=== PATIENT | male | born 1950 | race Caucasian/White ===

== ENCOUNTER 2018-03-01 06:29 | Day surgery (SDC) | payer MEDICARE, OTHER ==
[~2018-03-01] VITALS: Ht 177.8 cm; Wt 78.9 kg
[~2018-03-01 06:29] MED LIST: ALBU90OI6 INH; Aspirin EC81 MG PO; BACL10 PO; CHOL10002 PO; CLOB.05TO; FAMO40 PO; FLUSAL2505 INH; HYDCHL25 PO; HYDR1TAB94 PO; LISHYD2025 PO; LISI5 PO; METO25ER PO; Mobic15 MG PO; NYST100TC TOP; OMEP40CA12 PO; SIMV10 PO; SIMV40 PO; Simvastatin20 MG PO; TRAM50 PO
== END 2018-03-01 09:17 | disposition home or self-care (01) ==
LOC: ORSCMMR 06:29 → ORD 08:00 → ORSCMMR 09:17
PROVIDERS: Internal Medicine Gastroenterology
PROC: 0DB68ZX Excision of Stomach, Via Natural or Artificial Opening Endoscopic, Diagnostic (ICD-10-PCS; principal; 2018-03-01 08:00)
PROC: 0DBE8ZX Excision of Large Intestine, Via Natural or Artificial Opening Endoscopic, Diagnostic (ICD-10-PCS; principal; 2018-03-01 08:00)
PROC: 0DB58ZX Excision of Esophagus, Via Natural or Artificial Opening Endoscopic, Diagnostic (ICD-10-PCS; principal; 2018-03-01 08:00)
PROC: 0DB48ZX Excision of Esophagogastric Junction, Via Natural or Artificial Opening Endoscopic, Diagnostic (ICD-10-PCS; principal; 2018-03-01 08:00)
DX: K21.9 Gastro-esophageal reflux disease without esophagitis (principal); K22.70 Barrett's esophagus without dysplasia; K20.9 Esophagitis, unspecified; R19.7 Diarrhea, unspecified; K29.70 Gastritis, unspecified, without bleeding; K44.9 Diaphragmatic hernia without obstruction or gangrene; D12.0 Benign neoplasm of cecum; I10 Essential (primary) hypertension; E78.00 Pure hypercholesterolemia, unspecified; F17.220 Nicotine dependence, chewing tobacco, uncomplicated; Z79.899 Other long term (current) drug therapy
CPT/HCPCS: 88305; 88342; J7120

== ENCOUNTER 2019-06-20 16:42 | Inpatient (IN) | payer MEDICARE, OTHER ==
[~2019-06-20] VITALS: Ht 177.8 cm; Wt 73.5 kg
[~2019-06-20 16:42] MED LIST changes: +Atrovent Inha12.9 GM NEB; -LISHYD2025 PO; +ZESTORETIC 20-1 EACH PO
--- NOTE | 2019-06-22 06:50 | NUR ---
History, Chart, Medications and Allergies reviewed before start of procedure. Patient confirms NPO status and agrees with scheduled surgery. Lungs clear T/O to Auscultation. Pre-Op teaching done. Pt verbalizes understanding. Patient reports completing Chlorhexadine shower & MUPIROCIN OINTMENT TO NARES X 5 prior to admission to hospital. NO JEWELRY ON AT ADMIT TO [facility], NO GLASSES. DENTURE CUP PROVIDED FOR DENTURES DURING SURGERY.
--- NOTE | 2019-06-22 07:17 | NUR ---
LEAD [employer] DEVELOPER REPORT COMPLETED AT BEDSIDE WITH LA NENA HERNANDEZ RN.
--- NOTE | 2019-06-22 09:24 | NUR ---
06/22/19 0924 Char Ortiz PT VOIDED PRIOR TO COMING TO THE OR
--- NOTE | 2019-06-22 12:57 | NUR ---
PATIENT STATES NAUSEA RESOLVED. TOOK 80% OF LUNCH. DENIES PAIN AT THIS TIME. WIGGLING FEET MORE. TALKING WITH FAMILY. CONT TO MONITOR.
--- NOTE | 2019-06-22 19:25 | NUR ---
SHIFT SUMMARY PATIENT UP WITH PT, AMBULATED, THEN TO CHAIR. UNABLE TO VOID, BS > 600. STRAIGHT CATHED BY CLININCAL COORDINATOR, 600 ML OUTPUT. PATIENT STATES HX OF DIFFICULTY VOIDING AFTER NARCS. PATIENT CONT TO STATES NO PAIN. TOLERATING PO. CIRC CHECKS WNL. NO NEEDS AT THIS TIME.
--- NOTE | 2019-06-23 04:38 | NUR ---
SHIFT SUMMARY: PT POD #1 FOR LEFT TOTAL HIP. A&O X4. VS WNL. AQUACEL DRESSING CDI WITH POLAR PACK IN PLACE. PAIN MANAGED WITH TORADOL AND TYLENOL PER EMAR. PT OUT OF BED W/FWW+ 1 MINIMAL ASSIST. VOIDING WELL POST STRAIGHT CATHETERIZATION. YANELY REG DIET. DENIES N/V. SALINE LOCKED.
[2019-06-23 05:54] LABS: BASOPHILS ABSOLUTE AUTO 0.02 K/mm3 (0.00-0.23); BASOPHILS PERCENT AUTO 0 % (0-2); EOSINOPHILS PERCENT AUTO 0 % (0-6); Hematocrit 32.5 % (37.0-53.0); Hemoglobin 10.3 g/dL (13.5-17.5); IMMATURE GRAN ABSOLUTE AUTO 0.06 K/mm3 (0.00-0.10); IMMATURE GRAN PERCENT AUTO 0 % (0-1); LYMPHOCYTES PERCENT AUTO 8 % (21-46); MONOCYTES ABSOLUTE AUTO 1.24 K/mm3 (0.16-1.47); MONOCYTES PERCENT AUTO 9 % (4-13); Mean Corpuscular HGB 28.8 pg (26.0-34.0); Mean Corpuscular HGB Conc 31.7 g/dL (31.5-36.5); Mean Corpuscular Volume 91 fL (80-100); Mean Platelet Volume 8.8 fL (9.1-12.4); NEUTROPHILS ABSOLUTE AUTO 11.84 K/mm3 (1.96-9.15); NEUTROPHILS PERCENT AUTO 83 % (41-73); Platelet Count 325 K/mm3 (150-400); RDW Coefficient Variation 15.2 % (11.7-14.2); RDW Standard Deviation 50.6 fL (35.1-46.3); Red Blood Cell Count 3.58 M/mm3 (4.30-5.90); White Blood Cell Count 14.36 K/mm3 (4.00-11.30)
[2019-06-23 06:08] LABS: Anion Gap 6 mmol/L (6-16); Blood Urea Nitrogen 11 mg/dL (8-24); Bun/Creatinine Ratio 12.6 (12.0-20.0); CO2, Blood 26 mmol/L (21-32); Calcium, Blood 8.5 mg/dL (8.5-10.1); Chloride, Blood 103 mmol/L (98-108); Creatinine, Blood 0.87 mg/dL (0.60-1.20); Glomerular Filtration Rate >60 (60-); Glucose, Blood 117 mg/dL (70-99); Magnesium, Blood 1.9 mg/dL (1.6-2.4); Potassium, Blood 4.3 mmol/L (3.5-5.5); Sodium, Blood 135 mmol/L (136-145)
[2019-06-23] MEDS ORDERED: OXYC5 PO (08:25)
[2019-06-23] MEDS ORDERED: ACET500 PO (12:45)
[2019-06-23] MEDS ORDERED: ASPI325 PO (12:46)
--- NOTE | 2019-06-23 13:05 | NUR ---
PATIENT D/C'D HOME WITH AT THIS TIME; BOTH STATE UNDERSTANDING OF MEDS, WOUND CARE, FOLLOW UP APPT, ACTIVITY, ETC, OP PT. TOLERATING PO. VOIDING WELL. STATES PAIN WELL CONTROLLED. NO C/O AT THIS TIME.
== END 2019-06-23 13:10 | disposition home or self-care (01) | DRG 470 ==
LOC: SURS 06-22 05:29 → PRE IP 06-22 07:30 → SURS 06-22 11:31
PROVIDERS: ADMIT Orthopaedic Surgery
PROC: 0SRB04A Replacement of Left Hip Joint with Ceramic on Polyethylene Synthetic Substitute, Uncemented, Open Approach (ICD-10-PCS; principal; 2019-06-22 07:30)
DX: M16.12 Unilateral primary osteoarthritis, left hip (principal); I10 Essential (primary) hypertension
CPT/HCPCS: 36415; 72170; 80048; 83735; 85025; 88305; 88311; 94760; 97110; 97116; 97161; 97530; C1776; J0171; J0690; J0735; J1100; J1885; J2250; J2405; J2704; J2795; J3010; J3370; J7120

== ENCOUNTER 2019-12-22 15:55 | Inpatient (IN) | payer MEDICARE, OTHER ==
[~2019-12-22] VITALS: Ht 177.8 cm; Wt 78.0 kg
[~2019-12-22 15:55] MED LIST changes: +ACET500 PO; +ASPI325 PO; -CLOB.05TO; +CLOB.05TO TOP; +GABA300 PO; +OXYC5 PO
--- NOTE | 2019-12-25 07:34 | NUR ---
0615 AMBULATE TO [facility], CONFIRMED NPO AND SURGERY. PRE OP TEACHING DONE. LUNGS CLEAR. 0650 AT BEDSIDE. 0730 DENTURES LEFT IN PER DR NICKI CARVAJAL. DENTURE CUP SENT WITH PATIENT
--- NOTE | 2019-12-25 12:37 | NUR ---
Pt gave this nurse verbal consent to treat on 12/25/2019.
--- NOTE | 2019-12-25 14:33 | NUR ---
The patient gives this student nurse permission to help with his care on 12/26/2019
--- NOTE | 2019-12-26 05:07 | NUR ---
SHIFT SUMMARY PT IS A/O X4. USES 1X ASSIST AND WALKER TO BATHROOM. PT HAS AMBULATED IN HALLWAY MULTIPLE TIMES THIS SHIFT. PAIN CONTROLLED WITH TYLENOL/TORADOL PER ORDERS. PT HAS HAD DIFFICULTY URINATING AND HAS BEEN STRAIGHT CATH'D SEVERAL TIMES THIS SHIFT. TOLERATING PO INTAKE WELL. PT C/O NAUSEA ONCE AND WAS MED PER ORDERS. POLAR PACK HAS BEEN IN PLACE. SCD'S HAVE BEEN ON. AQUACEL WAS CHANGED D/T SATURATION. ASSISTED WITH ADL'S PRN.
[2019-12-26 06:16] LABS: BASOPHILS ABSOLUTE AUTO 0.01 K/mm3 (0.00-0.23); BASOPHILS PERCENT AUTO 0 % (0-2); EOSINOPHILS PERCENT AUTO 0 % (0-6); Hematocrit 30.8 % (37.0-53.0); Hemoglobin 10.2 g/dL (13.5-17.5); IMMATURE GRAN ABSOLUTE AUTO 0.05 K/mm3 (0.00-0.10); IMMATURE GRAN PERCENT AUTO 0 % (0-1); LYMPHOCYTES ABSOLUTE AUTO 1.33 K/mm3 (0.84-5.20); LYMPHOCYTES PERCENT AUTO 11 % (21-46); MONOCYTES ABSOLUTE AUTO 1.05 K/mm3 (0.16-1.47); MONOCYTES PERCENT AUTO 9 % (4-13); Mean Corpuscular HGB 29.6 pg (26.0-34.0); Mean Corpuscular HGB Conc 33.1 g/dL (31.5-36.5); Mean Corpuscular Volume 89 fL (80-100); Mean Platelet Volume 8.9 fL (9.1-12.4); NEUTROPHILS ABSOLUTE AUTO 9.23 K/mm3 (1.96-9.15); NEUTROPHILS PERCENT AUTO 79 % (41-73); Platelet Count 214 K/mm3 (150-400); RDW Coefficient Variation 17.1 % (11.7-14.2); RDW Standard Deviation 55.2 fL (35.1-46.3); Red Blood Cell Count 3.45 M/mm3 (4.30-5.90); White Blood Cell Count 11.67 K/mm3 (4.00-11.30)
[2019-12-26 06:43] LABS: Anion Gap 7 mmol/L (6-16); Blood Urea Nitrogen 13 mg/dL (8-24); Bun/Creatinine Ratio 11.4 (12.0-20.0); CO2, Blood 26 mmol/L (21-32); Calcium, Blood 8.7 mg/dL (8.5-10.1); Chloride, Blood 100 mmol/L (98-108); Creatinine, Blood 1.14 mg/dL (0.60-1.20); Glomerular Filtration Rate >60 (60-); Glucose, Blood 123 mg/dL (70-99); Magnesium, Blood 1.8 mg/dL (1.6-2.4); Potassium, Blood 4.2 mmol/L (3.5-5.5); Sodium, Blood 133 mmol/L (136-145)
[2019-12-26] MEDS ORDERED: ASPI81CH PO (09:25)
[2019-12-26] MEDS ORDERED: ACET500 PO (09:25)
[2019-12-26] MEDS ORDERED: ROXICODONE5 MG PO (09:26)
--- NOTE | 2019-12-26 10:17 | NUR ---
12/26/19 1017 Natalie Manrique VERIFICATIONS: EDIT CHART.
--- NOTE | 2019-12-26 17:06 | NUR ---
PATIENT GAVE THIS STUDENT RN PERMISSION TO BE PART OF HIS CARE ON 12/27/19.
--- NOTE | 2019-12-26 18:04 | NUR ---
SHIFT SUMMARY PT HAS DONE WELL THIS SHIFT. POD 1 R HAMZAH. AQUACEL DRESSING C/D/I, POLAR PACK IN PLACE. UP TO CHAIR T/O SHIFT. AMBULATING SBA W/FWW. WORKED WITH THERAPY. LOTT IN PLACE FOR URINARY RETENTION, BLADDER TRAIN TOMORROW. PT MEDICATED PER EMAR FOR PAIN.
--- NOTE | 2019-12-26 18:08 | NUR ---
PT FINISHED DINNER. SITTING IN CHAIR TALKING ON PHONE. MEDICATED WITH SCHED TORADOL.
--- NOTE | 2019-12-27 05:03 | NUR ---
SHIFT SUMMARY: PT POD #2 FOR RT HAMZAH. PT A&O X4. VSS. AQUACEL TO HIP CDI WITH POLAR PACK IN PLACE. PT MEDICATED WITH 5MG OXY ONCE. OTHERWISE, PAIN MANAGED WITH TORADOL AND TYLENOL PER EMAR. YANELY PO. DENIES N/V. LOTT DRAINING CLEAR YELLOW URINE. TOTAL OF 2400ML FOR OUTPUT. AMBULATING WITH FWW. INDEPENDENT IN ROOM. PT EAGER FOR DISCHARGE.
--- NOTE | 2019-12-27 10:02 | NUR ---
patient up to restroom, drained 150 ml from manuel and plug replaced to manuel
--- NOTE | 2019-12-27 18:06 | NUR ---
DISCHARGED TO HOME WITH . PT STATES HE FEELS LIKE HE IS NOW VOIDING AND EMPTYING HIS BLADDER PER HIS NORMAL. PAIN WELL CONTROLLED
== END 2019-12-27 18:07 | disposition home or self-care (01) | DRG 470 ==
LOC: SURS 12-25 05:33 → PRE IP 12-25 07:30 → SURS 12-25 11:55
PROVIDERS: ADMIT Orthopaedic Surgery
PROC: 0SR904A Replacement of Right Hip Joint with Ceramic on Polyethylene Synthetic Substitute, Uncemented, Open Approach (ICD-10-PCS; principal; 2019-12-25 07:30)
DX: M16.11 Unilateral primary osteoarthritis, right hip (principal); I10 Essential (primary) hypertension; E78.5 Hyperlipidemia, unspecified; J45.909 Unspecified asthma, uncomplicated
CPT/HCPCS: 36415; 72170; 80048; 83735; 85025; 88300; 97110; 97116; 97162; 97530; C1776; J0171; J0690; J0735; J1100; J1885; J2250; J2370; J2405; J2704; J2765; J2795; J3010; J7120

== ENCOUNTER 2019-12-27 23:47 | Emergency (ER) | payer MEDICARE, OTHER ==
[~2019-12-27] VITALS: Ht 177.8 cm; Wt 81.7 kg
[~2019-12-27 23:47] MED LIST changes: +ASPI81CH PO; +ROXICODONE5 MG PO
[2019-12-28 00:20] LABS: BASOPHILS ABSOLUTE AUTO 0.02 K/mm3 (0.00-0.23); BASOPHILS PERCENT AUTO 0 % (0-2); EOSINOPHILS ABSOLUTE AUTO 0.37 K/mm3 (0.00-0.68); EOSINOPHILS PERCENT AUTO 4 % (0-6); Hematocrit 34.6 % (37.0-53.0); Hemoglobin 11.2 g/dL (13.5-17.5); IMMATURE GRAN ABSOLUTE AUTO 0.04 K/mm3 (0.00-0.10); IMMATURE GRAN PERCENT AUTO 0 % (0-1); LYMPHOCYTES ABSOLUTE AUTO 2.79 K/mm3 (0.84-5.20); LYMPHOCYTES PERCENT AUTO 27 % (21-46); MONOCYTES ABSOLUTE AUTO 0.87 K/mm3 (0.16-1.47); MONOCYTES PERCENT AUTO 9 % (4-13); Mean Corpuscular HGB 29.3 pg (26.0-34.0); Mean Corpuscular HGB Conc 32.4 g/dL (31.5-36.5); Mean Corpuscular Volume 91 fL (80-100); NEUTROPHILS ABSOLUTE AUTO 6.17 K/mm3 (1.96-9.15); NEUTROPHILS PERCENT AUTO 60 % (41-73); Platelet Count 245 K/mm3 (150-400); RDW Coefficient Variation 17.3 % (11.7-14.2); Red Blood Cell Count 3.82 M/mm3 (4.30-5.90); White Blood Cell Count 10.26 K/mm3 (4.00-11.30)
[2019-12-28 00:34] LABS: International Normalized Ratio 0.91; Prothrombin Time Results 9.8 Sec (9.7-11.5)
[2019-12-28 00:41] LABS: Alanine Aminotransfer (ALT/SGP 27 U/L (12-78); Albumin, Blood 3.3 g/dL (3.4-5.0); Albumin/Globulin Ratio 0.9 (0.8-1.8); Alk Phos 111 U/L (50-136); Anion Gap 6 mmol/L (6-16); Aspartate Aminotrans (AST/SGOT 62 U/L (12-37); Bilirubin, Total 0.5 mg/dL (0.1-1.0); Blood Urea Nitrogen 16 mg/dL (8-24); Bun/Creatinine Ratio 16.4 (12.0-20.0); CO2, Blood 28 mmol/L (21-32); Calcium, Blood 8.8 mg/dL (8.5-10.1); Chloride, Blood 100 mmol/L (98-108); Creatinine, Blood 0.98 mg/dL (0.60-1.20); Globulin, Blood 3.6 g/dL (2.2-4.0); Glomerular Filtration Rate >60 (60-); Glucose, Blood 92 mg/dL (70-99); Potassium, Blood 4.6 mmol/L (3.5-5.5); Sodium, Blood 134 mmol/L (136-145); Total Protein, Blood 6.9 g/dL (6.4-8.2)
[2019-12-28 01:23] LABS: Source, Urine Clean Catch
[2019-12-28 01:24] LABS: Bilirubin, Urine Neg (Neg); Blood, Urine 5+ (Neg); Glucose Qualitative, Urine Neg (Neg); Ketones, Urine Neg (Neg); Leukocyte Esterase, Urine 2+ (Neg); Nitrite, Urine Neg (Neg); Protein, Urine Neg (Neg); Urobilinogen, Urine NORM (Normal)
[2019-12-28 01:39] LABS: Appearance, Urine Hazy (Clear); Color, Urine Red (P-Yellow)
[2019-12-28 01:40] LABS: Red Blood Cells, Urine TNTC /hpf (0-2); Squamous Epithelial Cells Not Seen /hpf (Few)
[2019-12-28 01:41] LABS: Bacteria Rare /hpf
== END 2019-12-28 02:40 | disposition home or self-care (01) ==
LOC: ER 23:47
PROVIDERS: Emergency Medicine
DX: R31.9 Hematuria, unspecified (principal); J45.909 Unspecified asthma, uncomplicated; I10 Essential (primary) hypertension; Z87.891 Personal history of nicotine dependence; Z96.641 Presence of right artificial hip joint; Z91.09 Other allergy status, other than to drugs and biological substances; Z79.899 Other long term (current) drug therapy; Z79.82 Long term (current) use of aspirin
CPT/HCPCS: 36415; 51702; 80053; 81001; 85025; 85610; 87086; 93005; 93010; 99283-25

== ENCOUNTER 2022-03-01 13:29 | Emergency (ER) | payer OTHER ==
[~2022-03-01] VITALS: Ht 177.8 cm; Wt 76.2 kg
== END 2022-03-01 14:57 | disposition home or self-care (01) ==
LOC: ER 13:29
DX: S93.401A Sprain of unspecified ligament of right ankle, initial encounter (principal); I10 Essential (primary) hypertension; Z79.899 Other long term (current) drug therapy; Z87.891 Personal history of nicotine dependence; W19.XXXA Unspecified fall, initial encounter
CPT/HCPCS: 73610; 99283-25

== ENCOUNTER 2023-03-25 09:18 | Day surgery (SDC) | payer OTHER ==
[~2023-03-25] VITALS: Ht 182.9 cm; Wt 79.5 kg
[2023-03-25] VITALS (15 sets, daily range): BP systolic 101–144; BP diastolic 71–97
[~2023-03-25 09:18] MED LIST changes: +OMEP20ER PO
--- NOTE | 2023-03-25 10:38 | NUR ---
03/25/23 Rohith Yoo HISTORY, CHART, MEDICATIONS AND ALLERGIES REVIEWED BEFORE START OF PROCEDURE. PATIENT CONFIRMS NPO STATUS AND AGREES WITH SCHEDULED PROCEDURE. 3-LEAD EKG REVIEWED WITH PHYSICIAN PRIOR TO START OF PROCEDURE. MONITOR INTACT WITH CONTINUOUS PULSE OXIMETRY,CAPNOGRAPHY, 3-LEAD EKG, INTERMITTENT BP. SUPPLEMENTAL O2 TO BE TITRATED THROUGHOUT PROCEDURE TO MAINTAIN O2 SATURATION ABOVE 90%. PATIENT DETERMINED TO BE ASA APPROPRIATE FOR PROPOFOL SEDATION PRIOR TO START OF PROCEDURE BY DR. BUCHANAN.
--- NOTE | 2023-03-25 11:13 | NUR ---
DISCHARGE NOTE Lungs clear T/O to Auscultation. Discharge instructions reviewed with patient. Patient verbalizes understanding. Copy given to patient to take home. Discharged via wheelchair to private car for ride home.
== END 2023-03-25 11:12 | disposition home or self-care (01) ==
LOC: ORSCMMR 09:18 → ORD 10:30 → ORSCMMR 10:30
PROVIDERS: Internal Medicine Gastroenterology
PROC: 0DJD8ZZ Inspection of Lower Intestinal Tract, Via Natural or Artificial Opening Endoscopic (ICD-10-PCS; principal; 2023-03-25 10:30)
DX: Z12.11 Encounter for screening for malignant neoplasm of colon (principal); Z86.010 Personal history of colon polyps; K57.30 Diverticulosis of large intestine without perforation or abscess without bleeding; K22.70 Barrett's esophagus without dysplasia; Z87.11 Personal history of peptic ulcer disease; Z98.84 Bariatric surgery status; I10 Essential (primary) hypertension; E78.00 Pure hypercholesterolemia, unspecified; J45.909 Unspecified asthma, uncomplicated; Z87.891 Personal history of nicotine dependence; Z79.899 Other long term (current) drug therapy
CPT/HCPCS: J2704; J7120

== ENCOUNTER 2024-01-03 11:40 | Day surgery (SDC) | payer OTHER ==
[~2024-01-03] VITALS: Ht 177.8 cm; Wt 81.0 kg
[~2024-01-03 11:40] MED LIST changes: +ALBU90OI; -ALBU90OI6 INH; +KETO15TC; +LISI20; +Lactated Ringer's 1,000 ML IV ONE; +SYMBICORT 16010.2 GM
[2024-01-03] MEDS ORDERED: NS 50 ML IV ONE (12:19)
[2024-01-03] MEDS ORDERED: CeFAZolin Sodium 2,000 MG VIAL ONE (12:19)
[2024-01-03] MEDS ORDERED: LOSARTAN-HCTZ1 EACH (12:40)
[2024-01-03] MEDS ORDERED: OMEPRAZOLE20 MG (12:41)
[2024-01-03] MEDS ORDERED: ZYRTEC10 M2 (12:41)
[2024-01-03] MEDS ORDERED: FORMOTEROL20 MCG/2 M (12:42)
[2024-01-03] MEDS ORDERED: AERONEB GO NEB1 EACH (12:42)
[2024-01-03] MEDS ORDERED: IPRAT-ALBUT 0.5-3 ML (12:43)
[2024-01-03] MEDS ORDERED: [UNRECOGNIZED DRUG - OTHER] (12:44)
[2024-01-03] MEDS ORDERED: B-12500 MC2 (12:45)
[2024-01-03] MEDS ORDERED: Lactated Ringer's 1,000 ML IV ONE (13:06)
[2024-01-03] MEDS ORDERED: FentaNYL Citrate 50 MCG/ML 2 ML Injection ONE (14:17)
[2024-01-03] MEDS ORDERED: propofoL 20 ML IV ONE (14:17)
[2024-01-03] MEDS ORDERED: Ropivacaine 0.5% HCl/Pf 5 MG/ML 20ML VIAL INJ ONE (14:35)
[2024-01-03] MEDS ORDERED: EPINEPhrine HCl 1 MG/ML 1ML Amp XX ONE (14:35)
[2024-01-03] MEDS ORDERED: Ondansetron HCl 2 MG / ML 2ML Vial ONE (14:39)
[2024-01-03] MEDS ORDERED: Dexamethasone Sod Phos 10 MG/ML 1ML VIAL ONE (14:39)
--- NOTE | 2024-01-03 14:39 | NUR ---
01/03/24 1439 Luna Gordon 10MLS ROPIVACAINE 0.5% MIXED AND VERIFIED W/ EPI 0.05MG (1MG/ML) TO MAKE ROPIVACAINE 0.5% W/ EPI, 1:200,000 FOR INJECTIONA AT [facility]
[2024-01-03 15:20] VITALS: BP 126/76
--- NOTE | 2024-01-03 16:30 | NUR ---
01/03/24 1630 Stepan Vgoel D/C'ED AT 1601.
== END 2024-01-03 16:18 | disposition home or self-care (01) ==
LOC: ORSCSDS 11:40
PROVIDERS: Orthopaedic Surgery
PROC: 01N50ZZ Release Median Nerve, Open Approach (ICD-10-PCS; principal; 2024-01-03 13:30)
DX: G56.03 Carpal tunnel syndrome, bilateral upper limbs (principal); J44.9 Chronic obstructive pulmonary disease, unspecified; E78.00 Pure hypercholesterolemia, unspecified; Z79.899 Other long term (current) drug therapy
CPT/HCPCS: J0171; J0690; J1100; J2405; J2704; J2795; J3010; J7120

== ENCOUNTER 2024-03-20 08:29 | Day surgery (SDC) | payer OTHER ==
[~2024-03-20] VITALS: Ht 177.8 cm; Wt 80.5 kg
[~2024-03-20 08:29] MED LIST changes: +AERONEB GO NEB1 EACH; +B-12500 MC2; +EPINEPhrine HCl 1 MG/ML 1ML Amp ONE; +FORMOTEROL20 MCG/2 M; +IPRAT-ALBUT 0.5-3 ML; +LOSARTAN-HCTZ1 EACH; +Lidocaine HCl/Pf 1% 5 ML VIAL ONE; +OMEPRAZOLE20 MG; +Ropivacaine 0.5% HCl/Pf 5 MG/ML 20ML VIAL ONE; +ZYRTEC10 M2; +[UNRECOGNIZED DRUG - OTHER]
[2024-03-20] MEDS ORDERED: CeFAZolin Sodium 2,000 MG VIAL ONE (09:07)
[2024-03-20] MEDS ORDERED: C COMPLEX1000 M1 PO (09:26)
[2024-03-20] MEDS ORDERED: FentaNYL Citrate 50 MCG/ML 2 ML Injection ONE (09:33)
[2024-03-20] MEDS ORDERED: propofoL 20 ML IV ONE (09:33)
[2024-03-20] MEDS ORDERED: Lactated Ringer's 1,000 ML IV ONE (09:41)
--- NOTE | 2024-03-20 11:10 | NUR ---
03/20/[email or web address] NOTIFIED OF SCRATCHES TO SABRINA MORRIS TO PROCEED PER DR BLAS
[2024-03-20 12:07] VITALS: BP 143/86
== END 2024-03-20 12:15 | disposition home or self-care (01) ==
LOC: ORSCSDS 08:29
PROVIDERS: Orthopaedic Surgery
PROC: 01N50ZZ Release Median Nerve, Open Approach (ICD-10-PCS; principal; 2024-03-20 10:30)
DX: G56.01 Carpal tunnel syndrome, right upper limb (principal); J44.9 Chronic obstructive pulmonary disease, unspecified; K21.9 Gastro-esophageal reflux disease without esophagitis; I10 Essential (primary) hypertension; Z79.899 Other long term (current) drug therapy
CPT/HCPCS: J0171; J0690; J2001; J2704; J2795; J3010; J7120

== ENCOUNTER 2024-12-14 17:00 | Emergency (ER) | payer OTHER ==
[~2024-12-14] VITALS: Ht 177.8 cm; Wt 83.5 kg
[~2024-12-14 17:00] MED LIST changes: +C COMPLEX1000 M1 PO; -EPINEPhrine HCl 1 MG/ML 1ML Amp ONE; -Lactated Ringer's 1,000 ML IV ONE; -Lidocaine HCl/Pf 1% 5 ML VIAL ONE; -Ropivacaine 0.5% HCl/Pf 5 MG/ML 20ML VIAL ONE
[2024-12-14 18:01] LABS: BASOPHILS ABSOLUTE AUTO 0.01 K/mm3 (0.00-0.23); BASOPHILS PERCENT AUTO 0 % (0-2); EOSINOPHILS ABSOLUTE AUTO 0.05 K/mm3 (0.00-0.68); EOSINOPHILS PERCENT AUTO 1 % (0-6); Hematocrit 42.2 % (37.0-53.0); Hemoglobin 14.7 g/dL (13.5-17.5); IMMATURE GRAN ABSOLUTE AUTO 0.02 K/mm3 (0.00-0.10); IMMATURE GRAN PERCENT AUTO 0 % (0-1); LYMPHOCYTES ABSOLUTE AUTO 1.21 K/mm3 (0.84-5.20); LYMPHOCYTES PERCENT AUTO 14 % (21-46); MONOCYTES ABSOLUTE AUTO 0.59 K/mm3 (0.16-1.47); MONOCYTES PERCENT AUTO 7 % (4-13); Mean Corpuscular HGB 32.7 pg (26.0-34.0); Mean Corpuscular HGB Conc 34.8 g/dL (31.5-36.5); Mean Corpuscular Volume 94 fL (80-100); Mean Platelet Volume 8.6 fL (9.1-12.4); NEUTROPHILS ABSOLUTE AUTO 6.62 K/mm3 (1.96-9.15); NEUTROPHILS PERCENT AUTO 78 % (41-73); Platelet Count 305 K/mm3 (150-400); RDW Coefficient Variation 12.8 % (11.7-14.2); RDW Standard Deviation 44.1 fL (35.1-46.3); Red Blood Cell Count 4.49 M/mm3 (4.30-5.90)
[2024-12-14] MEDS ORDERED: Aspirin 81 MG Chew PO ONE (19:00)
[2024-12-14 19:19] LABS: Albumin, Blood 3.6 g/dL (3.4-5.0); Albumin/Globulin Ratio 0.9 (0.8-1.8); Bilirubin, Total 0.4 mg/dL (0.1-1.0); Bun/Creatinine Ratio 11.2 (12.0-20.0); Calcium, Blood 9.5 mg/dL (8.5-10.1); Creatinine, Blood 0.89 mg/dL (0.60-1.20); Globulin, Blood 4.2 g/dL (2.2-4.0); Potassium, Blood 3.7 mmol/L (3.5-5.5); Total Protein, Blood 7.8 g/dL (6.4-8.2)
[2024-12-14 19:35] LABS: Free Thyroxine 0.96 ng/dL (0.70-1.60); Magnesium, Blood 1.9 mg/dL (1.6-2.4)
[2024-12-14 19:39] LABS: Thyroid Stimulating Hormone 1.14 uIU/mL (0.360-4.800)
[2024-12-14 20:47] LABS: Influenza A, PCR NEGATIVE (NEGATIVE); Influenza B, PCR NEGATIVE (NEGATIVE); Resp Syncytial Virus, PCR NEGATIVE (NEGATIVE); SARS-Cov-2 (COVID-19) PCR, MMC NEGATIVE (NEGATIVE)
[2024-12-14 22:00] VITALS: BP 146/113
[2024-12-14] MEDS ORDERED: Apixaban 5 MG Tab PO ONE (22:10)
[2024-12-14] MEDS ORDERED: ELIQUIS5 M2 PO (22:18)
== END 2024-12-14 22:30 | disposition home or self-care (01) ==
LOC: ER 17:00
PROVIDERS: Emergency Medicine; Physician Assistant
DX: I48.91 Unspecified atrial fibrillation (principal); R07.9 Chest pain, unspecified; I10 Essential (primary) hypertension; J44.89 Other specified chronic obstructive pulmonary disease; Z87.891 Personal history of nicotine dependence; Z91.041 Radiographic dye allergy status; Z79.899 Other long term (current) drug therapy
CPT/HCPCS: 0241U; 71046; 80053; 83735; 84439; 84443; 84484; 85025; 85379; 93005; 93010; 99285-25; A9270